=== PATIENT | male | born 1935 | race Caucasian/White ===

== ENCOUNTER 2016-10-29 07:06 | Inpatient (IN) | payer OTHER ==
[~2016-10-29] VITALS: Ht 175.3 cm; Wt 95.9 kg
[2016-10-29 08:36] LABS: ADD MIUA? YES; BILIRUBIN NEGATIVE; BLOOD LARGE; COLOR YELLOW ((YELLOW)); GLUCOSE (STRIP) NEGATIVE; KETONES NEGATIVE; LEUKOCYTES MODERATE; NITRITE NEGATIVE; PROTEIN (STRIP) 30; SPECIFIC GRAVITY 1.024 (1.000-1.030); UROBILINOGEN 0.2 MG/DL (0.2-1.0)
[2016-10-29 08:40] LABS: HEMATOCRIT 41.4 % (38.0-50.0); MCH 29.2 PG (29.0-34.0); MCHC 34.8 G/DL (30.0-36.0); MEAN PLAT.VOLUME 9.5 uM^3 (9.0-12.4); PLATELET COUNT 166 K/uL (156-360); RBC DIS.WIDTH-CV 13.8 % (11.8-14.6); RED BLOOD COUNT 4.93 M/uL (4.00-5.50); WHITE BLOOD COUNT 16.2 K/uL (4.1-10.2)
[2016-10-29 08:49] LABS: CHLORIDE 107 mEq/L (99-109); POTASSIUM 4.3 mEq/L (3.7-5.4); SODIUM 138 mEq/L (136-147)
[2016-10-29 08:51] LABS: GLUCOSE 121 mg/dL (70-99)
[2016-10-29 08:52] LABS: ANION GAP 10 MEQ/L (2-14)
[2016-10-29 08:55] LABS: GFR ESTIMATE (CALCULATED) > 59 mL/min/
[2016-10-29 08:56] LABS: UREA NITROGEN (BUN) 19 mg/dL (9-23)
[2016-10-29 09:01] LABS: TROP-I INTERPRETATION NEGATIVE; TROPONIN-I < 0.01 ng/mL (0.0-0.30)
[2016-10-29 09:06] LABS: BACTERIA NONE SEEN; CASTS NONE SEEN /LPF; CRYSTALS NONE SEEN; EPITHELIAL CELLS NONE SEEN; MUCUS RARE; RED BLOOD CELLS TNTC /HPF (0-5); UCUL ADDED? NO; WHITE BLOOD CELLS 0-5 /HPF (0-5)
[2016-10-29] MEDS ORDERED: VERAPAMIL HCL240 MG PO (11:19)
[2016-10-29] MEDS ORDERED: OXYBUTYNIN CHLOR5 MG PO (11:20)
[2016-10-29] MEDS ORDERED: METFORMIN HCL500 MG PO (11:20)
[2016-10-29] MEDS ORDERED: SELEGILINE HCL5 MG PO (11:21)
[2016-10-29] MEDS ORDERED: DOXAZOSIN MESYLA4 MG PO (11:22)
[2016-10-29] MEDS ORDERED: CARBIDOPA/LEVO1 EACH PO (11:22)
[2016-10-29] MEDS ORDERED: ENALAPRIL MALEA10 MG PO (11:22)
[2016-10-29] MEDS ORDERED: SENNA S TABLET1 EACH PO (11:25)
[2016-10-29] MEDS ORDERED: FINASTERIDE5 MG PO (11:25)
[2016-10-29] MEDS ORDERED: FUROSEMIDE40 MG PO (11:25)
[2016-10-29 16:33] VITALS: BP 192/86
[2016-10-29 20:00] VITALS: BP 139/63
[2016-10-30 00:16] VITALS: BP 136/64
[2016-10-30 04:33] VITALS: BP 150/67
[2016-10-30 07:32] VITALS: BP 148/69
[2016-10-30 17:22] VITALS: BP 166/82
[2016-10-30 20:05] VITALS: BP 174/76
[2016-10-31 00:17] VITALS: BP 168/74
[2016-10-31 05:33] LABS: ALKALINE PHOSPHATASE 68 IU/L (3-129); ANION GAP 9 MEQ/L (2-14); CHLORIDE 108 MEQ/L (99-109); GFR ESTIMATE (CALCULATED) > 59 mL/min/; GLUCOSE 136 mg/dL (70-99); HDL CHOLESTEROL 34 MG/DL (Desirable>=40); LDL CHOLESTEROL 72 mg/dL (Desirable<100); NON-HDL CHOLESTEROL 89 mg/dL (Desirable<160); POTASSIUM 3.7 MEQ/L (3.7-5.4); SAMPLE HEMOLYSIS CHECK 0; SAMPLE ICTERIC CHECK 0; SAMPLE LIPEMIA CHECK 0; SODIUM 141 MEQ/L (136-147); TOTAL BILIRUBIN 0.8 MG/DL (0.0-1.0); TOTAL CHOLESTEROL 123 mg/dL (Desirable<200); TRIGLYCERIDES 87 MG/DL (Normal: <150); UREA NITROGEN (BUN) 14 mg/dL (9-23)
[2016-10-31 06:20] LABS: EOSINOPHIL (%) 2.1 % (0-5); EOSINOPHIL COUNT 0.2 K/uL (0-0.3); HEMATOCRIT 41.7 % (38.0-50.0); IMMATURE GRANULOCYTE (%) 0.2 % (0.0-0.7); LYMPHOCYTE COUNT 0.9 K/uL (1.0-2.8); MCH 28.3 PG (29.0-34.0); MCHC 33.1 G/DL (30.0-36.0); MCV 85.6 FL (86-99); MONOCYTE (%) 6.3 % (3-12); MONOCYTE COUNT 0.6 K/uL (0-0.8); NEUTROPHIL (%) 81.4 % (45-76); NEUTROPHIL COUNT 7.5 K/uL (1.8-6.4); PLATELET COUNT 145 K/uL (156-360); RBC DIS.WIDTH-CV 13.9 % (11.8-14.6); RBC DIS.WIDTH-SD 43.4 % (39-53); RED BLOOD COUNT 4.87 M/uL (4.00-5.50)
[2016-10-31 06:22] LABS: WHITE BLOOD COUNT 9.2 K/uL (4.1-10.2)
[2016-10-31 07:50] VITALS: BP 181/86
[2016-10-31 15:58] VITALS: BP 138/64
[2016-10-31 23:28] VITALS: BP 188/88
[2016-11-01 07:28] LABS: Estimated Average Glucose 103 mg/dL (70-123); HEMOGLOBIN A1c (GLYCOHEMOGLOB) 5.2 % HGB (Below 5.7)
[2016-11-01 07:37] VITALS: BP 120/60
[2016-11-01 15:42] VITALS: BP 131/67
[2016-11-02 00:11] VITALS: BP 141/67
[2016-11-02 05:34] LABS: EOSINOPHIL (%) 4.9 % (0-5); EOSINOPHIL COUNT 0.4 K/uL (0-0.3); HEMATOCRIT 40.8 % (38.0-50.0); IMMATURE GRANULOCYTE (%) 0.4 % (0.0-0.7); LYMPHOCYTE COUNT 0.6 K/uL (1.0-2.8); MCH 29.6 PG (29.0-34.0); MCHC 34.8 G/DL (30.0-36.0); MEAN PLAT.VOLUME 9.8 uM^3 (9.0-12.4); MONOCYTE (%) 11.5 % (3-12); MONOCYTE COUNT 0.8 K/uL (0-0.8); NEUTROPHIL (%) 75.1 % (45-76); NEUTROPHIL COUNT 5.5 K/uL (1.8-6.4); PLATELET COUNT 186 K/uL (156-360); RBC DIS.WIDTH-CV 13.8 % (11.8-14.6); RBC DIS.WIDTH-SD 42.8 % (39-53); WHITE BLOOD COUNT 7.3 K/uL (4.1-10.2)
[2016-11-02 06:24] LABS: ALKALINE PHOSPHATASE 60 IU/L (3-129); ANION GAP 8 MEQ/L (2-14); CHLORIDE 104 MEQ/L (99-109); GFR ESTIMATE (CALCULATED) > 59 mL/min/; GLUCOSE 105 mg/dL (70-99); POTASSIUM 3.1 MEQ/L (3.7-5.4); SAMPLE HEMOLYSIS CHECK 0; SAMPLE ICTERIC CHECK 0; SAMPLE LIPEMIA CHECK 0; SODIUM 138 MEQ/L (136-147); TOTAL BILIRUBIN 0.8 MG/DL (0.0-1.0); UREA NITROGEN (BUN) 15 mg/dL (9-23)
[2016-11-02 07:20] VITALS: BP 145/75
[2016-11-02 15:51] VITALS: BP 138/66
[2016-11-02 23:48] VITALS: BP 128/59
[2016-11-03 08:46] VITALS: BP 117/57
[2016-11-03 09:21] LABS: ANION GAP 7 MEQ/L (2-14); CHLORIDE 106 MEQ/L (99-109); GFR ESTIMATE (CALCULATED) > 59 mL/min/; GLUCOSE 124 mg/dL (70-99); POTASSIUM 3.7 MEQ/L (3.7-5.4); SAMPLE HEMOLYSIS CHECK 0; SAMPLE ICTERIC CHECK 0; SAMPLE LIPEMIA CHECK 0; SODIUM 139 MEQ/L (136-147); UREA NITROGEN (BUN) 14 mg/dL (9-23)
[2016-11-03] MEDS ORDERED: CEFTIN500 MG PO (14:22)
[2016-11-03] MEDS ORDERED: K-DUR20 MEQ PO (14:23)
[2016-11-03 15:55] VITALS: BP 114/59
== END 2016-11-03 18:27 | DRG 872 ==
LOC: EME → EDBD 07:06 → EME 07:06 → EDOF 13:48 → 3EAST 13:48 → EDOF 13:49 → 3EAST 16:03
PROVIDERS: Emergency Medicine; Family Medicine
DX: A41.9 Sepsis, unspecified organism (principal); N39.0 Urinary tract infection, site not specified; I10 Essential (primary) hypertension; G20 Parkinson's disease; E11.9 Type 2 diabetes mellitus without complications; E78.5 Hyperlipidemia, unspecified; G51.0 Bell's palsy; I87.2 Venous insufficiency (chronic) (peripheral); N32.81 Overactive bladder; R31.9 Hematuria, unspecified
CPT/HCPCS: 71010; 74176; 80048; 80053; 80061; 81003; 83036; 83605; 84484; 85025; 85027; 87040; 93005; 97530 GO; 99281; 99285; J0696; J2405; J2550; J7030; J7050

== ENCOUNTER 2018-05-21 22:32 | Inpatient (IN) | payer OTHER ==
[~2018-05-21] VITALS: Ht 180.3 cm; Wt 92.2 kg
[~2018-05-21 22:32] MED LIST: CARBIDOPA/LEVO1 EACH PO; CEFTIN500 MG PO; DOXAZOSIN MESYLA4 MG PO; ENALAPRIL MALEA10 MG PO; FINASTERIDE5 MG PO; FUROSEMIDE40 MG PO; K-DUR20 MEQ PO; METFORMIN HCL500 MG PO; OXYBUTYNIN CHLOR5 MG PO; SELEGILINE HCL5 MG PO; SENNA S TABLET1 EACH PO; VERAPAMIL HCL240 MG PO
[2018-05-21 23:07] LABS: HEMATOCRIT 42.8 % (38.0-50.0); HEMOGLOBIN 14.4 G/DL (12.5-16.6); MCH 28.6 PG (29.0-34.0); MCHC 33.6 G/DL (30.0-36.0); MCV 85.1 FL (86-99); PLATELET COUNT 199 K/uL (156-360); RBC DIS.WIDTH-CV 13.6 % (11.8-14.6); RBC DIS.WIDTH-SD 42.2 % (39-53); RED BLOOD COUNT 5.03 M/uL (4.00-5.50); WHITE BLOOD COUNT 8.7 K/uL (4.1-10.2)
[2018-05-21 23:19] LABS: ALBUMIN 3.9 g/dL (3.2-4.8); CHLORIDE 104 mEq/L (99-109); POTASSIUM 3.9 mEq/L (3.7-5.4); SODIUM 139 mEq/L (136-147)
[2018-05-21 23:21] LABS: GLUCOSE 145 mg/dL (70-99)
[2018-05-21 23:22] LABS: TOTAL PROTEIN 6.2 g/dL (6.4-8.3)
[2018-05-21 23:23] LABS: TOTAL BILIRUBIN 0.6 mg/dL (0.0-1.0)
[2018-05-21 23:25] LABS: ALKALINE PHOSPHATASE 116 IU/L (3-129); CREATININE 1.1 mg/dL (0.6-1.3); GFR ESTIMATE (CALCULATED) > 59 mL/min/ (58.99-99999)
[2018-05-21 23:26] LABS: UREA NITROGEN (BUN) 19 mg/dL (9-23)
[2018-05-21 23:27] LABS: AST (GOT) 15 IU/L (2-34)
[2018-05-21 23:28] LABS: ALT (GPT) 17 IU/L (3-49); LIPASE 14 U/L (1.0-51.0)
[2018-05-21 23:37] LABS: TROP-I INTERPRETATION NEGATIVE; TROPONIN-I < 0.01 ng/mL (0.0-0.30)
[2018-05-22 01:05] LABS: APPEARANCE CLEAR ((CLEAR)); BILIRUBIN NEGATIVE; BLOOD SMALL; COLOR YELLOW ((YELLOW)); GLUCOSE (STRIP) NEGATIVE; KETONES NEGATIVE; LEUKOCYTES LARGE; NITRITE NEGATIVE; PROTEIN (STRIP) 30
[2018-05-22 01:11] LABS: BACTERIA NONE SEEN /HPF; CALCIUM OXALATE CRYSTALS 1+ /HPF; EPITHELIAL CELLS RARE /HPF; HYALINE CASTS 0-5 /LPF; MUCUS TRACE /LPF; RED BLOOD CELLS 30-40 /HPF (0-5); UCUL ADDED? YES; WHITE BLOOD CELLS 40-50 /HPF (0-5)
[2018-05-22 05:11] VITALS: BP 192/87
[2018-05-22 08:33] VITALS: BP 181/84
[2018-05-22] MEDS ORDERED: ENALAPRIL MALEAT5 MG PO (09:40)
[2018-05-22] MEDS ORDERED: GABAPENTIN100 MG PO (09:41)
[2018-05-22] MEDS ORDERED: PROTONIX40 MG PO (09:43)
[2018-05-22] MEDS ORDERED: LIDEX 0.05% CRE60 GM TP (11:33)
[2018-05-22] MEDS ORDERED: SERTRALINE HCL25 MG PO (11:33)
[2018-05-22 16:44] VITALS: BP 133/64
[2018-05-22 23:30] VITALS: BP 115/58
[2018-05-23 07:27] VITALS: BP 163/76
[2018-05-23 16:06] VITALS: BP 155/74
[2018-05-23 21:30] VITALS: BP 176/87
[2018-05-23 23:13] VITALS: BP 158/70
[2018-05-24 08:45] VITALS: BP 165/78
[2018-05-24] MEDS ORDERED: CEFTIN500 MG PO (13:22)
[2018-05-24] MEDS ORDERED: DOXAZOSIN MESYLA4 MG PO (13:24)
== END 2018-05-24 15:02 | DRG 690 ==
LOC: EME → EDBD 22:32 → EDOF 05-22 03:36 → 3EAST 05-22 03:36 → ENRESERV 05-22 04:03 → 3EAST 05-22 04:27
PROVIDERS: Emergency Medicine
DX: N30.91 Cystitis, unspecified with hematuria (principal); G20 Parkinson's disease; L89.159 Pressure ulcer of sacral region, unspecified stage; R26.81 Unsteadiness on feet; R29.6 Repeated falls; E11.51 Type 2 diabetes mellitus with diabetic peripheral angiopathy without gangrene; I87.2 Venous insufficiency (chronic) (peripheral); I10 Essential (primary) hypertension; N32.81 Overactive bladder; E78.5 Hyperlipidemia, unspecified; R26.0 Ataxic gait; Z79.84 Long term (current) use of oral hypoglycemic drugs; Z87.442 Personal history of urinary calculi
CPT/HCPCS: 70450; 71045; 72125; 72170; 80053; 81003; 83690; 83880; 84484; 85027; 87086; 93005; 97530 GO; 97530 GP; 99281; 99285; A6214; J0696; J7030

== ENCOUNTER 2018-05-24 12:15 | Inpatient (IN) | payer OTHER ==
[~2018-05-24] VITALS: Ht 175.3 cm; Wt 92.4 kg
[~2018-05-24 12:15] MED LIST changes: +ENALAPRIL MALEAT5 MG PO; +GABAPENTIN100 MG PO; +LIDEX 0.05% CRE60 GM TP; +PROTONIX40 MG PO; +SERTRALINE HCL25 MG PO
[2018-05-24] MEDS ORDERED: CEFTIN500 MG PO (13:22)
[2018-05-24] MEDS ORDERED: DOXAZOSIN MESYLA4 MG PO (13:24)
[2018-05-24 15:26] VITALS: BP 133/62
[2018-05-24 21:28] VITALS: BP 118/55
[2018-05-25] VITALS: BP 147/73
[2018-05-25 06:36] VITALS: BP 166/79
[2018-05-25 15:10] VITALS: BP 107/56
[2018-05-26 04:33] VITALS: BP 168/72
[2018-05-26 15:20] VITALS: BP 126/62
[2018-05-27 05:05] VITALS: BP 160/74
[2018-05-27 15:34] VITALS: BP 114/55
[2018-05-28 06:00] VITALS: BP 144/76
[2018-05-28 15:35] VITALS: BP 126/63
[2018-05-29 04:49] VITALS: BP 151/75
[2018-05-29 16:23] VITALS: BP 100/55
[2018-05-30 05:10] VITALS: BP 146/74
[2018-05-30 15:11] VITALS: BP 122/55
[2018-05-31 05:54] VITALS: BP 142/95
[2018-05-31 06:01] VITALS: BP 140/84
[2018-05-31 15:27] VITALS: BP 112/55
[2018-06-01 05:31] VITALS: BP 150/72; BP 170/79
[2018-06-01 06:01] LABS: HEMATOCRIT 43.6 % (38.0-50.0); HEMOGLOBIN 14.6 G/DL (12.5-16.6); MCH 28.9 PG (29.0-34.0); MCHC 33.5 G/DL (30.0-36.0); MCV 86.2 FL (86-99); PLATELET COUNT 175 K/uL (156-360); RBC DIS.WIDTH-CV 13.8 % (11.8-14.6); RBC DIS.WIDTH-SD 42.8 % (39-53); RED BLOOD COUNT 5.06 M/uL (4.00-5.50); WHITE BLOOD COUNT 4.7 K/uL (4.1-10.2)
[2018-06-01 07:05] LABS: CHLORIDE 102 MEQ/L (99-109); GFR ESTIMATE (CALCULATED) > 59 mL/min/ (58.99-99999); GLUCOSE 104 mg/dL (70-99); POTASSIUM 4.2 MEQ/L (3.7-5.4); SODIUM 140 MEQ/L (136-147); UREA NITROGEN (BUN) 19 mg/dL (9-23)
[2018-06-01 15:55] VITALS: BP 114/52
[2018-06-01 18:41] VITALS: BP 124/56
[2018-06-02 04:30] VITALS: BP 172/79
[2018-06-02 08:40] VITALS: BP 132/56
[2018-06-02 15:14] VITALS: BP 113/55
== END 2018-06-02 15:25 | DRG 946 ==
LOC: 3WEST 12:15 → ENPENDDIS 06-02 → 3WEST 06-02 15:25
PROVIDERS: Physical Medicine & Rehabilitation Pain Medicine; Psychiatry & Neurology Neurology
PROC: F07M0ZZ Range of Motion and Joint Mobility Treatment of Musculoskeletal System - Whole Body (ICD-10-PCS; principal; 2018-05-24)
DX: R53.1 Weakness (principal); G20 Parkinson's disease; R29.6 Repeated falls; E11.9 Type 2 diabetes mellitus without complications; F32.9 Major depressive disorder, single episode, unspecified; I10 Essential (primary) hypertension; N32.81 Overactive bladder; N40.0 Benign prostatic hyperplasia without lower urinary tract symptoms; Z87.442 Personal history of urinary calculi; G62.9 Polyneuropathy, unspecified; I87.2 Venous insufficiency (chronic) (peripheral); R26.9 Unspecified abnormalities of gait and mobility; M21.371 Foot drop, right foot; E78.5 Hyperlipidemia, unspecified; M48.061 Spinal stenosis, lumbar region without neurogenic claudication; M50.30 Other cervical disc degeneration, unspecified cervical region; M47.9 Spondylosis, unspecified; R41.89 Other symptoms and signs involving cognitive functions and awareness; Z79.84 Long term (current) use of oral hypoglycemic drugs
CPT/HCPCS: 72141; 72148; 80048; 82948; 85027; 97110 GO; 97530 GP; A6214; J1650; J1815